=== PATIENT | male | born 1940 | race Caucasian/White ===

== ENCOUNTER 2016-06-04 10:22 | Day surgery (SDC) | payer OTHER, MEDICARE ==
[2016-06-04] MEDS ORDERED: NS 1,000 ML IV ONE (10:39)
[2016-06-04] MEDS ORDERED: ASPIRIN EC 325 MG TAB PO ONE ×2 (10:39→11:05)
[2016-06-04] MEDS ORDERED: FAMOTIDINE 20 MG TAB PO ONE (10:39)
[2016-06-04] MEDS ORDERED: diphenhydrAMINE 25 MG CAP PO ONE ×2 (10:39→11:05)
[2016-06-04] MEDS ORDERED: DIAZEPAM 5 MG TAB PO ONE (10:39)
[2016-06-04] MEDS ORDERED: DIAZEPAM 5 MG TAB ONE (11:05)
[2016-06-04] MEDS ORDERED: FAMOTIDINE 20 MG TAB ONE (11:05)
[2016-06-04 11:33] LABS: % IMMATURE GRANULYOCYTES 1.5 % (0.0-1.1); ABSOLUTE IMMATURE GRANULOCYTES 0.11 10^3/uL (0.00-0.10); ADD DIFF? NO; ADD MORPH? NO; ADD SCAN? NO; ATYPICAL LYMPHOCYTE FLAG 10 (0-99); FRAGMENT RBC FLAG 0 (0-99); HEMATOCRIT 40.3 % (40.0-51.0); HEMOGLOBIN 13.5 g/dL (13.7-17.5); LEFT SHIFT FLG 10 (0-99); LIPEMIA HEMOLYSIS FLAG 80 (0-99); MEAN CELL HEMOGLOBIN 30.3 pg (27.9-34.1); MEAN CELL HEMOGLOBIN CONCENTR. 33.5 g/dL (32.4-36.7); MEAN CELL VOLUME 90.4 fL (81.5-99.8); MEAN PLATELET VOLUME 10.5 fL (8.7-11.7); PLATELET CLUMPS FLAG 20 (0-99); PLATELET COUNT 254 10^3/uL (150-400); RED BLOOD CELL COUNT 4.46 10^6/uL (4.40-6.38); RED CELL DISTRIBUTION WIDTH 13.7 % (11.5-15.2)
[2016-06-04 11:43] LABS: INR 1.07 (0.83-1.16); PROTIME(PATIENT) 13.8 SEC (12.0-15.0)
[2016-06-04 11:56] LABS: ANION GAP 12 mEq/L (8-16); CALCIUM 9.8 mg/dL (8.5-10.4); CARBON DIOXIDE 22 mEq/l (22-31); CHLORIDE 109 mEq/L (97-110); CHOLESTEROL 197 mg/dL (140-220); CHOLESTEROL/HDL RATIO 4.28 RATIO (1.00-4.97); CREATININE 1.1 mg/dL (0.7-1.3); GLOMERULAR FILTRATION RATE > 60; GLUCOSE 96 mg/dL (70-100); HIGH DENSITY LIPOPROTEIN 46 mg/dL (40-65); LDL/HDL RATIO 2.67 RATIO (1.00-3.64); LOW DENSITY LIPOPROTEIN 123 mg/dL (80-100); NON-HIGH DENSITY LIPOPROTEIN 151 mg/dL (90-129); POTASSIUM 4.5 mEq/L (3.5-5.2); SODIUM 143 mEq/L (134-144); TRIGLYCERIDE 140 mg/dL (40-150); VERY LOW DENSITY LIPOPROTEINS 28 mg/dL (8-25)
[2016-06-04] MEDS ORDERED: LIDOCAINE 1% 30 ML SDV ONE (12:34)
[2016-06-04] MEDS ORDERED: fentaNYL 100 MCG/2 ML INJ ONE ×2 (12:34→13:22)
[2016-06-04] MEDS ORDERED: VERAPAMIL 5 MG/2 ML VIAL ONE (12:35)
[2016-06-04] MEDS ORDERED: HEPARIN 10,000 UNIT/10 ML MDV ONE (12:35)
[2016-06-04] MEDS ORDERED: IOPAMIDOL (ISOVUE 370) 100 ML BTL IV ONE (12:35)
[2016-06-04] MEDS ORDERED: ONDANSETRON 4 MG/2 ML VIAL ONE (13:39)
[2016-06-04] MEDS ORDERED: ADENOSINE 6 MG/2 ML VIAL ONE (13:41)
[2016-06-04] MEDS ORDERED: PROMETHAZINE HCL 25 MG/ML INJ IVP PRN (14:22)
--- NOTE | 2016-06-04 14:25 | PDDXCAT ---
Diagnostic Cath Note - . Date: 06/04/16 Occupational Therapist Rehab Manager: Herrera Indication: other (CAD with h/o prior PCIs; GARCIA as a possible CCS class III anginal equivalent) - Procedure Access: right wrist Procedure: left heart catheterization, coronary angiography, left ventriculogram , other (Fractional Flow Sherwood measurement of the LAD.) - Materials Left Heart Cath size: 5F Left Heart Cath materials: other (Sighseer and Pigtail) - Findings-Left Heart Catheterization LM: Normal. LAD: Mid-LAD approx. 50% located just distal to D-2 origin and proximal to prior stent; bifurcated D-2 with moderate disease in both branches. LCX: Normal. The circumflex is a small vessel with a single OM branch and a moderate to large atrial branch. RCA: Diffuse mild disease proximal and distal; PDA stent widel patent; posterolateral branch with 50% at origin. LVEF: 65% Wall motion: Normal. Estimated blood loss: <50ml Closure method: TR Band Assessment: 1) Normal LV systolic function. 2) CAD as described above. 3) Normal fractional flow reserve in the LAD. Intervention: Based on the patient's clinical history and diagnostic angiograms, it was decided to perform Fractional Flow Sherwood measurement to assess the significance of the moderate stenosis in the midportion of the anterior descending. The patient received 2500 units of intravenous heparin in addition to the 5000 units which had been given at the beginning of the procedure. A 5 Cameroonian Left-BU 3.5 guide catheter was advanced to the proximal aorta. The pressure-wire was advanced to the tip of the guide catheter. Guide catheter and pressure-wire readings were equalized. The left main was engaged and the pressure-wire was advanced beyond the stenosis in question. Two rounds of intracoronary adenosine at doses of 200 mcg and 300 mcg were administered. Fractional flow reserve was normal at 0.91. Patient Problems: Problems Problem Status Onset Coronary artery disease Acute Hypercholesteremia Acute Hypertension Acute
--- NOTE | 2016-06-04 14:34 | CPEKG ---
Heart Rate: 79 RR Interval: 759 P-R Interval: 208 QRSD Interval: 78 QT Interval: 396 QTC Interval: 455 P [place]: 46 QRS [place]: -5 T Wave [place]: 18 EKG Severity - ABNORMAL ECG - EKG Impression: SINUS RHYTHM EKG Impression: PROBABLE INFERIOR INFARCT, AGE INDETERMINATE Electronically Signed By: Dexter Baltazar 04-Jun-2016 15:47:56
== END 2016-06-04 17:59 | disposition home or self-care (01) ==
LOC: FCATH 10:22
PROVIDERS: ATTEND Internal Medicine Interventional Cardiology
PROC: B2111ZZ Fluoroscopy of Multiple Coronary Arteries using Low Osmolar Contrast (ICD-10-PCS; principal; 2016-06-04)
PROC: 4A0335C Measurement of Arterial Flow, Coronary, Percutaneous Approach (ICD-10-PCS; principal; 2016-06-04)
PROC: B2151ZZ Fluoroscopy of Left Heart using Low Osmolar Contrast (ICD-10-PCS; principal; 2016-06-04)
PROC: 4A023N7 Measurement of Cardiac Sampling and Pressure, Left Heart, Percutaneous Approach (ICD-10-PCS; principal; 2016-06-04)
DX: R06.02 Shortness of breath (principal); I25.10 Atherosclerotic heart disease of native coronary artery without angina pectoris; J84.9 Interstitial pulmonary disease, unspecified; I10 Essential (primary) hypertension; E78.5 Hyperlipidemia, unspecified
CPT/HCPCS: 93005; 93458; 93571; C1769; C1887; J0153; J1644; J2405; J3010; Q9967

== ENCOUNTER → 2016-08-28 | Outpatient (CLI) | payer OTHER, MEDICARE | LOC: BMCIMAGING 13:28 | PROVIDERS: ATTEND Internal Medicine | DX: E04.1 Nontoxic single thyroid nodule (principal); R06.9 Unspecified abnormalities of breathing; R53.83 Other fatigue | CPT/HCPCS: 76536-PO ==

== ENCOUNTER 2016-10-03 07:54 | Day surgery (SDC) | payer OTHER, MEDICARE ==
[2016-10-03] MEDS ORDERED: LIDOCAINE 1% 2 ML INJ ID PRN (08:00)
[2016-10-03] MEDS ORDERED: LR 1,000 ML IV ONE (08:00)
[2016-10-03] MEDS ORDERED: PROPOFOL/EMULSION 500 MG/50 ML BOTTLE IV ONE (08:41)
--- NOTE | 2016-10-03 08:43 | PDGENHP ---
History & Physical Chief Complaint: Fe def anemia, fatigue History of Present Illness: Fe def anemia Pertinent Past, Social, Family History: CAD. Hx of prostate ca x/p radiation. EGD last year with dilation of esophageal Schatzki's ring Relevant Physical Exam: NAD. RRR. CTAB. s/nt/nd/+bs
[2016-10-03] MEDS ORDERED: NALOXONE HCL 0.4 MG/ML INJ IVP PRN (08:47)
[2016-10-03] MEDS ORDERED: ONDANSETRON 4 MG/2 ML VIAL IVP PRN (08:47)
--- NOTE | 2016-10-03 08:49 | PDANEPAE ---
ANE History of Present Illness Patient presents for EGD ANE Past Medical History - Cardiovascular History Hx Hypertension: Yes Hx Arrhythmias: No Hx Chest Pain: No Hx Coronary Artery / Peripheral Vascular Disease: Yes Hx CHF / Valvular Disease: No Hx Palpitations: No - Pulmonary History Hx COPD: No Hx Asthma/Reactive Airway Disease: No Hx Recent Upper Respiratory Infection: No Hx Oxygen in Use at Home: No - Neurologic History Hx Cerebrovascular Accident: No Hx Seizures: No Hx Dementia: No - Endocrine History Hx Diabetes: No - Renal History Hx Renal Disorders: No - Liver History Hx Hepatic Disorders: No - Neurological & Psychiatric Hx Hx Neurological and Psychiatric Disorders: No - Cancer History Hx Cancer: Yes - Congenital Disorder History Hx Congenital Disorders: No - GI History Hx Gastrointestinal Disorders: Yes - Chronic Pain History Chronic Pain: Yes (BILATERAL KNEES) ANE Review of Systems - Exercise capacity METS (RN): 3 METS ANE Patient History - Allergies Allergies/Adverse Reactions: pseudoephedrine [Pseudoephedrine] Allergy (Severe, Verified 08/27/14 13:22) URINARY RETENTION Sulfa (Sulfonamide Antibiotics) Allergy (Severe, Verified 08/27/14 13:22) URINARY RETENTION clemastine fumarate [From Antihistamine] Allergy (Intermediate, Verified 13:22) URINE RETENTION menthol [From Antihistamine] Allergy (Intermediate, Verified 08/27/14 13:22) URINE RETENTION phenylpropanolamine HCl [From Antihistamine] Allergy (Intermediate, Verified 13:22) URINE RETENTION pseudoephedrine HCl [From Antihistamine] Allergy (Intermediate, Verified 13:22) URINE RETENTION tripelennamine HCl [From Antihistamine] Allergy (Intermediate, Verified 13:22) URINE RETENTION triprolidine HCl [From Antihistamine] Allergy (Intermediate, Verified 08/27/14 13:22) URINE RETENTION midazolam HCl [From Versed] Allergy (Verified 08/27/14 13:22) POLLEN Allergy (Unknown, Uncoded 08/27/14 13:22) UNK - Home Medications Home Medications: Aspirin [Aspirin 325 mg (*)] 325 mg PO DAILY 06/04/16 [Last Taken 09/25/16] Cholecalciferol Vit D3 [Vitamin D3 (*)] 2,000 units PO DAILY 06/04/16 [Last Taken 09/25/16] Esomeprazole Mag Trihydrate [Nexium] 40 mg PO DAILY 06/04/16 [Last Taken ] Gemfibrozil [Lopid 600 MG (*)] 600 mg PO BIDAC 06/04/16 [Last Taken 10/03/16] Glucosamine Sulfate [Glucosamine Sulfate 500 MG (*)] 1,000 mg PO DAILY@12 [Last Taken 09/25/16] Multivitamins [Multivitamin (*)] 1 each PO DAILY 06/04/16 [Last Taken 09/25/16] Tamsulosin HCl [Flomax 0.4 MG (*)] 0.4 mg PO HS 06/04/16 [Last Taken 10/02/16] Valsartan [Diovan (*)] 160 mg PO DAILY 06/04/16 [Last Taken 10/03/16] Co Q-10 200 mg 1 tab DAILY 09/20/16 [Last Taken 09/25/16] Finasteride 1 tab DAILY 09/20/16 [Last Taken 10/03/16] Norvasc 2.5 mg (*) 1 tab DAILY 09/20/16 [Last Taken 10/03/16] - NPO status NPO Since - Liquids (Date): 10/02/16 NPO Since - Liquids (Time): 05:00 NPO Since - Solids (Date): 10/01/16 NPO Since - Solids (Time): 08:00 - Smoking Hx Smoking Status: Never smoked ANE Labs/Vital Signs - Vital Signs Blood Pressure: 132/71 Heart Rate: 101 Respiratory Rate: 22 O2 Sat (%): 92 Height: 170.18 cm Weight: 90.718 kg ANE Physical Exam - Airway Neck exam: FROM Mallampati Score: Class 2 Mouth exam: poor dentition - Pulmonary Pulmonary: no respiratory distress - Cardiovascular Cardiovascular: regular rate and rhythym - ASA Status ASA Status: IV ANE Anesthesia Plan Anesthesia Plan: GA with mask (rba discussed, pt agrees to proceed)
--- NOTE | 2016-10-03 08:49 | POSTANESTH ---
Post Anesthetic Evaluation Cardiovascular Status: Normal, Stable Respiratory Status: Normal, Stable Level of Consciousness/Mental Status: Can Participate in Eval Pain Control: Adequate, Prn Tx Ordered Nausea/Vomiting Control: Adequate, Prn Tx Ordered Complications Possibly Related to Anesthesia: None Noted
[2016-10-03] MEDS ORDERED: PHENYLEPHRINE HCL 100 MCG/ML SYR ONE (08:50)
--- NOTE | 2016-10-03 10:13 | POSTOPPROG ---
Post Op Note Date of Operation: 10/03/16 Surgeon: José Antonio Roberson Pre-op Diagnosis: Fe def anemia Post-op Diagnosis: gastritis, sigmoid erythema Indication: Fe def anemia Procedure: EGD w biopsy, colonoscopy w biopsy Findings: minimal gastritis, mild sigmoid erythema Inf/Abcess present in the surg proc area at time of surgery?: No Complications: none Specimen(s): gastric antrum/body, duodenum 2nd portion/bulb, sigmoid
[2016-10-03 10:38] VITALS: TEMP 97.5
[2016-10-03 11:03] VITALS: O2SAT 93
[2016-10-03 11:17] VITALS: BP 135/87; PULSE 79; RESP 84
--- NOTE | 2016-10-03 14:59 | GPN ---
[f rep st] PROCEDURE NOTE DATE OF PROCEDURE: 10/03/2016 PROCEDURE: Esophagogastroduodenoscopy and colonoscopy. INDICATION: Iron-deficiency anemia, fatigue. CONSENT: Informed consent was obtained from the patient after a full explanation of risks, benefits , and alternatives to the procedure. COMPLICATIONS: None. MEDICATIONS GIVEN: Per Anesthesia. DESCRIPTION OF EXAM: After adequate sedation was achieved, the forward-viewing endoscope was advanc ed under direct vision through the mouth, esophagus, stomach, and as far as the second portion of th e duodenum. Findings are as noted below. Retroflexion was performed in the stomach. Following thi s portion of the procedure and withdrawal of the endoscope, the patient was repositioned for colonos copy. The forward-viewing colonoscope was advanced through the anal orifice, and as far as the cecu m and terminal ileum. The appendiceal orifice and terminal ileum were identified and photo document ed. Retroflexion was performed in the ascending colon and in the rectum. Findings are as below. FINDINGS: 1. Esophagus: Normal. 2. Stomach: Mild erythema was notable in the antrum and body. There were no erosions or ulcers. This was biopsied to assess for H pylori or other causes of gastritis. 3. Duodenum: Normal-appearing duodenum. Four biopsies were taken from the second portion of the d uodenum and 2 from the duodenal bulb to rule out celiac disease. 4. Terminal ileum: Normal. 5. There was some mild erythema and congestion in the distal sigmoid colon. This was biopsied to a ssess for significant mucosal pathology. 6. Colon prep was good and views were good. The mucosa overall was normal other than as mentioned above. No polyps were seen on a careful exam. 7. Small internal hemorrhoids were present and perianal/rectal exam was notable for reduced tone. IMPRESSION: No obvious source of iron-deficiency anemia was seen on esophagogastroduodenoscopy or c olonoscopy. Will await biopsy results as noted above. RECOMMENDATIONS: 1. Await biopsy results to assess for cause of iron-deficiency anemia. 2. Follow up with Dr. Emanuel. 3. If iron-deficiency anemia persists, please refer back for capsule endoscopy to assess the small bowel. /[id number]/MODL
== END 2016-10-03 11:40 | disposition home or self-care (01) ==
LOC: FSGY 07:54
PROVIDERS: ATTEND Internal Medicine
PROC: 0DBN8ZX Excision of Sigmoid Colon, Via Natural or Artificial Opening Endoscopic, Diagnostic (ICD-10-PCS; principal; 2016-10-03 09:00)
PROC: 0DB98ZX Excision of Duodenum, Via Natural or Artificial Opening Endoscopic, Diagnostic (ICD-10-PCS; principal; 2016-10-03 09:00)
PROC: 0DB68ZX Excision of Stomach, Via Natural or Artificial Opening Endoscopic, Diagnostic (ICD-10-PCS; principal; 2016-10-03 09:00)
DX: D50.9 Iron deficiency anemia, unspecified (principal); K29.70 Gastritis, unspecified, without bleeding; K64.8 Other hemorrhoids; Z85.46 Personal history of malignant neoplasm of prostate
CPT/HCPCS: J2370; J2704

== ENCOUNTER → 2016-11-07 | Outpatient (CLI) | payer OTHER, MEDICARE | LOC: BHFA 10:45 | PROVIDERS: ATTEND Internal Medicine Cardiovascular Disease | DX: R06.02 Shortness of breath (principal) ==

== ENCOUNTER → 2016-11-14 | Outpatient (CLI) | payer OTHER, MEDICARE | LOC: FIMAGING 10:39 | DX: J98.11 Atelectasis (principal); I25.10 Atherosclerotic heart disease of native coronary artery without angina pectoris; K80.20 Calculus of gallbladder without cholecystitis without obstruction ==

== ENCOUNTER → 2017-02-10 | Outpatient (CLI) | payer OTHER, MEDICARE | LOC: FIMAGING 12:00 | PROVIDERS: ATTEND Orthopaedic Surgery | DX: Z01.818 Encounter for other preprocedural examination (principal); M17.11 Unilateral primary osteoarthritis, right knee ==

== ENCOUNTER 2017-02-17 06:09 | Inpatient (IN) | payer OTHER, MEDICARE ==
[~2017-02-17 06:09] MED LIST: ROPIVACAINE 0.2% 80 MG, EPINEPHrine 0.2 MG, KETOROLAC TROMETHAMINE 30 MG, morphINE 10 M... IU ONE; TRANEXAMIC ACID 900 MG in NS 100 ML IV ONE
--- NOTE | 2017-02-17 06:12 | PDHPUP ---
History & Physical Update H&P update statement: This history and physical update is based on an assessment of the patient which was completed after admission or registration (within 24 hours), but prior to the surgery/procedure.
--- NOTE | 2017-02-17 06:14 | PDIAF ---
- Diagnosis Diagnosis: right knee djd Code Status: Full Code - Medication Management Discharge Medications: Medications to Continue on Transfer Aspirin [Aspirin 325 mg (*)] 325 mg PO DAILY 06/04/16 [Last Taken 09/25/16] Cholecalciferol Vit D3 [Vitamin D3 (*)] 2,000 units PO DAILY 06/04/16 [Last Taken 09/25/16] Esomeprazole Mag Trihydrate [Nexium] 20 mg PO BID 06/04/16 [Last Taken 10/03/16] Gemfibrozil [Lopid 600 MG (*)] 600 mg PO BIDAC 06/04/16 [Last Taken 10/03/16] Glucosamine Sulfate [Glucosamine Sulfate 500 MG (*)] 1,000 mg PO DAILY@12 [Last Taken 09/25/16] Multivitamins [Multivitamin (*)] 1 each PO DAILY 06/04/16 [Last Taken 09/25/16] Tamsulosin HCl [Flomax 0.4 MG (*)] 0.4 mg PO HS 06/04/16 [Last Taken 10/02/16] Valsartan [Diovan (*)] 160 mg PO DAILY 06/04/16 [Last Taken 10/03/16] Finasteride [Proscar 5 MG (*)] 5 mg PO DAILY #0 09/20/16 [Last Taken 10/03/16] Herbals/Supplements -Info Only 1 ea PO DAILY #0 09/20/16 [Last Taken 09/25/16] amLODIPine BESYLATE [Norvasc 2.5 mg (*)] 2.5 mg PO DAILY #0 09/20/16 [Last Taken 10/03/16] Erythromycin Gel [Erythromycin 2% Gel (*)] 1 dale TP BID PRN 01/29/17 [Last Taken Unknown] Discharge Medications: Refer to the Discharge Home Medication list for PRN reason. - Orders Services needed: Home Care, Physical Therapy Home Care Face to Face: I certify that this patient was under my care and that I had the required dazj-nz-unif encounter meeting the encounter requirements on the discharge day. My findings support the fact that the patient is homebound as defined in Home Care Face to Face Continued: CMS Chapter 7 Medicare Benefits Manual 30.1.1 , The condition of the patient is such that there exists a normal inability to leave home and consequently, leaving home would require a considerable and taxing effort. Diet Recommendation: no restrictions on diet Diet Texture: Regular Texture Diet Activity/Weight Bearing Restrictions: wbat. rom as tolerated. daily dressing changes. may shower without bandage. no soaking or immersion. ankle and calf rom while in bed. aspirin 325 mg po daily. f/u at two weeks. seek attn for increasing pain, cp, sob, other focal complaint - Follow Up Care Current Providers and Referrals: Nelli Emanuel MD [Primary Care Provider] -
[2017-02-17] MEDS ORDERED: ceFAZolin 2 GM/SWFI 2 GM/20 ML SYR IVP ONE ×2 (06:22→06:45)
[2017-02-17] MEDS ORDERED: LR 1,000 ML IV ONE (06:22)
[2017-02-17] MEDS ORDERED: LIDOCAINE 1% 2 ML INJ ID PRN (06:22)
[2017-02-17] MEDS ORDERED: FAMOTIDINE 20 MG TAB PO ONE (06:22)
[2017-02-17] MEDS ORDERED: ACETAMINOPHEN 325 MG TAB PO ONE (06:22)
[2017-02-17] MEDS ORDERED: THROMBIN (BOVINE) 5,000 UNIT VIAL TP ONE (06:47)
[2017-02-17] MEDS ORDERED: CALCIUM CHLORIDE 1 GM/10 ML INJ ONE (06:47)
[2017-02-17] MEDS ORDERED: ceFAZolin 1 GM/5 ML SYR ONE (06:48)
[2017-02-17] MEDS ORDERED: fentaNYL 100 MCG/2 ML INJ ONE (07:15)
[2017-02-17] MEDS ORDERED: PROPOFOL/EMULSION 500 MG/50 ML BOTTLE IV ONE (07:15)
[2017-02-17] MEDS ORDERED: LIDOCAINE 2% 5 ML SDV ONE ×2 (07:17)
--- NOTE | 2017-02-17 07:48 | PDANEPAE ---
ANE Past Medical History - Cardiovascular History Hx Hypertension: Yes Hx Arrhythmias: Yes Hx Chest Pain: Yes Hx Coronary Artery / Peripheral Vascular Disease: Yes Hx CHF / Valvular Disease: No Hx Palpitations: No - Pulmonary History Hx COPD: No Hx Asthma/Reactive Airway Disease: No Hx Recent Upper Respiratory Infection: No Hx Oxygen in Use at Home: No Hx Sleep Apnea: Yes Sleep Apnea Screening Result - Last Documented: Positive Pulmonary History Comment: Admits to SOB - Neurologic History Hx Cerebrovascular Accident: No Hx Seizures: No Hx Dementia: No - Endocrine History Hx Diabetes: No Hypothyroid: No Hyperthyroid: No Obesity: yes, mild - Renal History Hx Renal Disorders: No Renal History Comment: hx of fistula between bladder and rectum - Liver History Hx Hepatic Disorders: No - Neurological & Psychiatric Hx Hx Neurological and Psychiatric Disorders: No - Cancer History Hx Cancer: Yes Cancer History Comment: PROSTATE CANCER 2014 - Congenital Disorder History Hx Congenital Disorders: No - GI History Hx Gastrointestinal Disorders: Yes Gastrointestinal History Comment: GERD - Other Health History Other Health History: none - Chronic Pain History Chronic Pain: Yes (BILATERAL KNEES) - Surgical History Prior Surgeries: STENT PLACEMENT 2009, 2011 AND 2014. CATARACT SURGERY 10 YRS AGO. MASTOIDECTOMY AND TONSILLECTOMY 2 Y.O. ANE Review of Systems Review of Systems: - Exercise capacity Exercise capacity: limited by disability METS (RN): 4 METS ANE Patient History - Allergies Allergies/Adverse Reactions: pseudoephedrine [Pseudoephedrine] Allergy (Severe, Verified 08/27/14 13:22) URINARY RETENTION Sulfa (Sulfonamide Antibiotics) Allergy (Severe, Verified 08/27/14 13:22) URINARY RETENTION clemastine fumarate [From Antihistamine] Allergy (Intermediate, Verified 13:22) URINE RETENTION menthol [From Antihistamine] Allergy (Intermediate, Verified 08/27/14 13:22) URINE RETENTION midazolam HCl [From Versed] Allergy (Intermediate, Verified 02/03/17 11:19) phenylpropanolamine HCl [From Antihistamine] Allergy (Intermediate, Verified 13:22) URINE RETENTION pseudoephedrine HCl [From Antihistamine] Allergy (Intermediate, Verified 13:22) URINE RETENTION tripelennamine HCl [From Antihistamine] Allergy (Intermediate, Verified 13:22) URINE RETENTION triprolidine HCl [From Antihistamine] Allergy (Intermediate, Verified 08/27/14 13:22) URINE RETENTION Oohrbfy-Isx-Cgx Reductase Inhibitor Allergy (Unknown, Verified 02/03/17 11:20) POLLEN Allergy (Unknown, Uncoded 08/27/14 13:22) UNK - Home Medications Home Medications: Aspirin [Aspirin 325 mg (*)] 325 mg PO DAILY 06/04/16 [Last Taken 02/12/17] Cholecalciferol Vit D3 [Vitamin D3 (*)] 2,000 units PO DAILY 06/04/16 [Last Taken 02/11/17] Esomeprazole Mag Trihydrate [Nexium] 20 mg PO BID 06/04/16 [Last Taken 02/16/17 17:00] Gemfibrozil [Lopid 600 MG (*)] 600 mg PO BIDAC 06/04/16 [Last Taken 02/16/17 17: 00] Glucosamine Sulfate [Glucosamine Sulfate 500 MG (*)] 1,000 mg PO DAILY@12 [Last Taken 02/16/17] Multivitamins [Multivitamin (*)] 1 each PO DAILY 06/04/16 [Last Taken 02/12/17] Tamsulosin HCl [Flomax 0.4 MG (*)] 0.4 mg PO HS 06/04/16 [Last Taken 02/16/17 21 :00] Valsartan [Diovan (*)] 160 mg PO DAILY 06/04/16 [Last Taken 02/17/17 05:00] Finasteride [Proscar 5 MG (*)] 5 mg PO DAILY #0 09/20/16 [Last Taken 02/17/17 05 :00] Herbals/Supplements -Info Only 1 ea PO DAILY #0 09/20/16 [Last Taken 02/11/17] amLODIPine BESYLATE [Norvasc 2.5 mg (*)] 2.5 mg PO DAILY #0 09/20/16 [Last Taken 02/17/17 05:00] Erythromycin Gel [Erythromycin 2% Gel (*)] 1 dale TP BID PRN 01/29/17 [Last Taken 02/10/17] - NPO status NPO Since - Liquids (Date): 02/16/17 NPO Since - Liquids (Time): 18:00 NPO Since - Solids (Date): 02/16/17 NPO Since - Solids (Time): 18:00 - Anes Hx Anes Hx: no prior problems - Smoking Hx Smoking Status: Never smoked Marijuana use: No - Alcohol Use Alcohol Use: Rarely - Family Anes Hx Family Anes Hx: neg - N/A Family Hx Anesthesia Complications: none ANE Labs/Vital Signs - Vital Signs Blood Pressure: 151/84 Heart Rate: 86 Respiratory Rate: 16 O2 Sat (%): 94 Height: 165.1 cm Weight: 92.079 kg ANE Physical Exam - Airway Neck exam: FROM Mallampati Score: Class 3 Mouth exam: normal dental/mouth exam - Pulmonary Pulmonary: no respiratory distress, no rales or rhonchi, clear to auscultation - Cardiovascular Cardiovascular: regular rate and rhythym - ASA Status ASA Status: III (occasional pac/pvc. decreased air movement b/l lung bases) ANE Anesthesia Plan Anesthesia Plan: MAC, spinal Regional Anesthesia: adductor canal FNB Total IV Anesthesia: No
[2017-02-17] MEDS ORDERED: NALOXONE HCL 0.4 MG/ML INJ IVP PRN (07:51)
[2017-02-17] MEDS ORDERED: ACETAMINOPHEN 500 MG TAB PO PRN (07:51)
[2017-02-17] MEDS ORDERED: LABETALOL HCL 50 MG/10 ML SYR IVP PRN (07:51)
[2017-02-17] MEDS ORDERED: HYDROCODONE/APAP 5/325 TAB PO PRN (07:51)
[2017-02-17] MEDS ORDERED: ONDANSETRON 4 MG/2 ML VIAL IVP PRN ×2 (07:51→09:08)
[2017-02-17] MEDS ORDERED: OXYCODONE/APAP 5/325 TAB PO PRN (07:51)
[2017-02-17] MEDS ORDERED: LR 500 ML IV PRN (07:51)
[2017-02-17] MEDS ORDERED: RANITIDINE 50 MG/2 ML VIAL ONE (07:58)
[2017-02-17] MEDS ORDERED: MAGNESIUM HYDROXIDE 30 ML UDCUP PO PRN (09:08)
[2017-02-17] MEDS ORDERED: DIPHENOXYLATE/ATROPINE LOMOTIL 1 TAB PO PRN (09:08)
[2017-02-17] MEDS ORDERED: PROMETHAZINE HCL 25 MG/ML INJ IVP PRN (09:08)
[2017-02-17] MEDS ORDERED: LACTULOSE 20 GM/30 ML UDCUP PO PRN (09:08)
[2017-02-17] MEDS ORDERED: METOCLOPRAMIDE 10 MG/2 ML VIAL IVP PRN (09:08)
[2017-02-17] MEDS ORDERED: POLYETHYLENE GLYCOL 3350 17 GM PKT PO PRN (09:08)
[2017-02-17] MEDS ORDERED: BISACODYL 10 MG SUPP PR PRN (09:08)
[2017-02-17] MEDS ORDERED: TEMAZEPAM 15 MG CAP PO PRN (09:08)
[2017-02-17] MEDS ORDERED: oxyCODONE IR 5 MG TAB PO PRN (09:08)
[2017-02-17] MEDS ORDERED: diphenhydrAMINE 25 MG CAP PO PRN (09:08)
[2017-02-17] MEDS ORDERED: PROMETHAZINE HCL 25 MG SUPPR PR PRN (09:08)
[2017-02-17] MEDS ORDERED: ONDANSETRON DISINTEGRATING 4 MG TAB PO PRN (09:08)
[2017-02-17] MEDS ORDERED: DIAZEPAM 5 MG TAB PO PRN (09:08)
[2017-02-17] MEDS ORDERED: ROPIVACAINE HCL 150 MG/30 ML INJ ONE (09:15)
[2017-02-17] MEDS ORDERED: LR 1,000 ML IV SCH (09:30)
[2017-02-17] MEDS: ACETAMINOPHEN 325 MG TAB PO SCH ×3 (11:23→23:16)
[2017-02-17] MEDS: ceFAZolin 2 GM/DEXTROSE 100 ML IV SCH ×2 (14:25→20:21)
[2017-02-17] MEDS: TRANEXAMIC ACID 650 MG TAB PO SCH ×2 (14:25→23:16)
--- NOTE | 2017-02-17 17:14 | ASMTCMCOM ---
CM Note CM Note Notes: Pt accepted at [facility] per Sylvain, referral sent. Date Signed: 02/17/2017 05:14 PM Electronically Signed By:SANDRA Dangelo
--- NOTE | 2017-02-17 17:14 | ASMTCMCOM ---
CM Note CM Note Notes: Pt accepted at [facility] per Sylvain, referral sent. Date Signed: 02/17/2017 05:14 PM Electronically Signed By:SANDRA Dangelo
--- NOTE | 2017-02-17 17:14 | ASMTCMCOM ---
CM Note CM Note Notes: Pt accepted at [facility] per Sylvain, referral sent. Date Signed: 02/17/2017 05:14 PM Electronically Signed By:SANDRA Dangelo
[2017-02-17] MEDS: GEMFIBROZIL 600 MG TAB PO SCH (17:42)
[2017-02-17] MEDS: PANTOPRAZOLE SODIUM 40 MG TAB PO SCH (20:21)
[2017-02-17] MEDS: FAMOTIDINE 20 MG TAB PO SCH (20:21)
[2017-02-17] MEDS: SENNOSIDES/DOCUSATE SODIUM TAB PO SCH (20:21)
[2017-02-17] MEDS ORDERED: TAMSULOSIN HCL 0.4 MG CAP PO SCH (21:00)
[2017-02-17] MEDS ORDERED: ESOMEPRAZOLE MAG TRIHYDRATE 20 MG PO SCH (21:00)
[2017-02-17 22:09] VITALS: RESP 16
[2017-02-17] MEDS: ASPIRIN 325 MG TAB PO SCH (23:16)
[2017-02-18] MEDS: ACETAMINOPHEN 325 MG TAB PO SCH ×2 (05:25→11:49)
[2017-02-18] MEDS: TRANEXAMIC ACID 650 MG TAB PO SCH (06:31)
[2017-02-18 07:28] VITALS: PULSE 89
--- NOTE | 2017-02-18 08:02 | PDIAF ---
- Diagnosis Diagnosis: right knee djd Code Status: Full Code - Medication Management Discharge Medications: Medications to Continue on Transfer Aspirin [Aspirin 325 mg (*)] 325 mg PO DAILY 06/04/16 [Last Taken 02/12/17] Cholecalciferol Vit D3 [Vitamin D3 (*)] 2,000 units PO DAILY 06/04/16 [Last Taken 02/11/17] Esomeprazole Mag Trihydrate [Nexium] 20 mg PO BIDAC 06/04/16 [Last Taken 17:00] Gemfibrozil [Lopid 600 MG (*)] 600 mg PO BIDAC 06/04/16 [Last Taken 02/16/17 17: 00] Glucosamine Sulfate [Glucosamine Sulfate 500 MG (*)] 1,000 mg PO DAILY@12 [Last Taken 02/16/17] Multivitamins [Multivitamin (*)] 1 each PO DAILY 06/04/16 [Last Taken 02/12/17] Tamsulosin HCl [Flomax 0.4 MG (*)] 0.4 mg PO HS 06/04/16 [Last Taken 02/16/17 21 :00] Valsartan [Diovan (*)] 160 mg PO DAILY 06/04/16 [Last Taken 02/17/17 05:00] Finasteride [Proscar 5 MG (*)] 5 mg PO DAILY #0 09/20/16 [Last Taken 02/17/17 05 :00] Herbals/Supplements -Info Only 1 ea PO DAILY #0 09/20/16 [Last Taken 02/11/17] amLODIPine BESYLATE [Norvasc 2.5 mg (*)] 2.5 mg PO DAILY #0 09/20/16 [Last Taken 02/17/17 05:00] Erythromycin Gel [Erythromycin 2% Gel (*)] 1 dale TP BID PRN 01/29/17 [Last Taken 02/10/17] Amoxicillin Trihydrate [Amoxil] 500 mg PO TID@06,14,02/17/17 [Last Taken 09/28 06:00] Aspirin [Aspirin 325 mg (*)] 325 mg PO DAILY tab 02/18/17 [Last Taken Unknown] oxyCODONE IR [Oxycodone Ir (*)] 5 - 10 mg PO Q3HRS PRN #90 tab 02/18/17 [Last Taken Unknown] Discharge Medications: Refer to the Discharge Home Medication list for PRN reason. - Orders Services needed: Physical Therapy Diet Recommendation: no restrictions on diet Diet Texture: Regular Texture Diet Activity/Weight Bearing Restrictions: wbat. rom as tolerated. daily dressing changes. may shower without bandage. no soaking or immersion. ankle and calf rom while in bed. aspirin 325 mg po daily. f/u at two weeks. seek attn for increasing pain, cp, sob, other focal complaint - Follow Up Care Current Providers and Referrals: Nelli Emanuel MD [Primary Care Provider] -
[2017-02-18] MEDS: ASPIRIN 325 MG TAB PO SCH (08:10)
[2017-02-18] MEDS: GEMFIBROZIL 600 MG TAB PO SCH (08:10)
[2017-02-18] MEDS: PANTOPRAZOLE SODIUM 40 MG TAB PO SCH (08:10)
[2017-02-18] MEDS: SENNOSIDES/DOCUSATE SODIUM TAB PO SCH (08:10)
[2017-02-18] MEDS: FAMOTIDINE 20 MG TAB PO SCH (08:15)
--- NOTE | 2017-02-18 08:23 | GDS ---
[f rep st] DISCHARGE SUMMARY ADMIT DIAGNOSIS: Right knee degenerative joint disease. DISCHARGE DIAGNOSIS: Right knee degenerative joint disease. PROCEDURE: Right total knee arthroplasty. HISTORY OF PRESENT ILLNESS: The patient is a 76-year-old gentleman with end-stage arthritis to his r ight knee. Clinical and radiographic features are consistent with this. He has failed all attempts at conservative management, has interference with his activities of daily living. I, therefore, liliya mmended total knee replacement. HOSPITAL COURSE: The patient was admitted the hospital floor after uncomplicated total knee arthropl asty. He tolerated the procedure well. Postoperative course was uneventful. At the time of dischar ge, he was tolerating an oral diet. His pain is well controlled on oral medicines. He is voiding wi thout difficulty. His dressing is clean, dry, and intact. He has negative calf swelling or tenderne ss. Negative Homans sign bilaterally. X-rays are stable with anatomic alignment. DISCHARGE ACTIVITIES: Weightbearing as tolerated. Range of motion as tolerated. Daily dressing delicia nges. No soaking or immersion. May shower without the bandage. FOLLOWUP: Follow up in the orthopedic clinic in 2 weeks. Seek attention for increasing redness, swe lling, drainage. DISCHARGE MEDICATIONS: Oxycodone 5 mg 1-2 every 4 hours p.r.n. pain, aspirin 325 mg p.o. daily. Follow up at 2 weeks. He will be discharged to [facility]. /[id number]/MODL
[2017-02-18] MEDS ORDERED: FINASTERIDE 5 MG TAB PO SCH (09:00)
[2017-02-18] MEDS ORDERED: VALSARTAN 160 MG TAB PO SCH (09:00)
[2017-02-18 11:24] VITALS: BP 160/90; TEMP 99.6; O2SAT 95
--- NOTE | 2017-02-18 14:17 | ASMTCMCOM ---
CM Note CM Note Notes: Pt medically stable for d/c to [facility], requests wc van so transport set up w [employer] for 1200; pt aware he will be billed. RN to call report to Sylvain at . Orders sent in [employer]. Sylvain to complete PASRR. Date Signed: 02/18/2017 02:16 PM Electronically Signed By:SANDRA Dangelo
--- NOTE | 2017-02-18 14:18 | ASDISCHSUM ---
Discharge Information Plan Status:SNF Medically Cleared to Leave: Discharge Date:02/18/2017 12:00 PM CM D/C Disposition:Correction Facility ADT D/C Disposition:Correction Facility Projected Discharge Date:02/18/2017 11:00 AM Transportation at D/C:Wheelchair Van Discharge Delay Reason: Follow-Up Date:02/18/2017 11:00 AM Discharge Slot: Final Diagnosis: Placement Information Referral Type:*Longterm/SNF Referral ID:[id number] Provider Name:[facility] Address 1:[address] Address 2: City:[place] Selection Factors: State:[place] Patient Contact Information Contact Name:LULI Relationship: Address:[address] City:[place] Alternate Phone: State/Zip Code:[place] [address] Email: Financial Information Financial Class: Primary Plan Desc:MEDICARE INPATIENT Primary Plan Number:[id number] Secondary Plan Desc:[employer]/MDR SUPPLEMENT Secondary Plan Number:[id number] Assessment Information [facility] CM Progress Note CM Note CM Note Notes: Pt accepted at [facility] per Sylvain, referral sent. Date Signed: 02/17/2017 05:14 PM Electronically Signed By:SANDRA Dangelo [facility] CM Progress Note CM Note CM Note Notes: Pt medically stable for d/c to [facility], requests van so transport set up w [employer] for 1200; pt aware he will be billed. RN to call report to Sylvain at . Orders sent in [employer]. Sylvain to complete PASRR. Date Signed: 02/18/2017 02:16 PM Electronically Signed By:SANDRA Dangelo Intervention Information
--- NOTE | 2017-02-18 14:18 | ASDISCHSUM ---
Discharge Information Plan Status:SNF Medically Cleared to Leave: Discharge Date:02/18/2017 12:00 PM CM D/C Disposition:[facility]ison Facility ADT D/C Disposition:Prison Facility Projected Discharge Date:02/18/2017 11:00 AM Transportation at D/C:Wheelchair Van Discharge Delay Reason: Follow-Up Date:02/18/2017 11:00 AM Discharge Slot: Final Diagnosis: Placement Information Referral Type:*[facility]cfp/SNF Referral ID:[id number] Provider Name:Christos Hernandez [facility] Address 1:[address] Address 2: City:[place] Selection Factors: State:[place] Patient Contact Information Contact Name:LULI Relationship: Address:[address] City:[place] Alternate Phone: State/Zip Code:[place] [address] Email: Financial Information Financial Class: Primary Plan Desc:MEDICARE INPATIENT Primary Plan Number:[id number] Secondary Plan Desc:AARP/MDR SUPPLEMENT Secondary Plan Number:[id number] Assessment Information [facility] CM Progress Note CM Note CM Note Notes: Pt accepted at [facility] per Sylvain, referral sent. Date Signed: 02/17/2017 05:14 PM Electronically Signed By:SANDRA Dangelo [facility] CM Progress Note CM Note CM Note Notes: Pt medically stable for d/c to [facility], requests van so transport set up w [employer] for 1200; pt aware he will be billed. RN to call report to Sylvain at . Orders sent in [employer]. Sylvain to complete PASRR. Date Signed: 02/18/2017 02:16 PM Electronically Signed By:SANDRA Dangelo Intervention Information
--- NOTE | 2017-02-18 14:18 | ASDISCHSUM ---
Discharge Information Plan Status:SNF Medically Cleared to Leave: Discharge Date:02/18/2017 12:00 PM CM D/C Disposition:[facility] ADT D/C Disposition:[facility] Facility Projected Discharge Date:02/18/2017 11:00 AM Transportation at D/C:Wheelchair Van Discharge Delay Reason: Follow-Up Date:02/18/2017 11:00 AM Discharge Slot: Final Diagnosis: Placement Information Referral Type:*[facility]pc/SNF Referral ID:[id number] Provider Name:Christos Hernandez [facility] Address 1:[address] Address 2: City:[place] Selection Factors: State:[place] Patient Contact Information Contact Name:LULI Relationship: Address:[address] City:[place] Alternate Phone: State/Zip Code:[place] [address] Email: Financial Information Financial Class: Primary Plan Desc:MEDICARE INPATIENT Primary Plan Number:[id number] Secondary Plan Desc:AARP/MDR SUPPLEMENT Secondary Plan Number:[id number] Assessment Information [facility] CM Progress Note CM Note CM Note Notes: Pt accepted at [facility] per Sylvain, referral sent. Date Signed: 02/17/2017 05:14 PM Electronically Signed By:SANDRA Dangelo [facility] CM Progress Note CM Note CM Note Notes: Pt medically stable for d/c to [facility], requests van so transport set up w [employer] for 1200; pt aware he will be billed. RN to call report to Sylvain at . Orders sent in [employer]. Sylvain to complete PASRR. Date Signed: 02/18/2017 02:16 PM Electronically Signed By:SANDRA Dangelo Intervention Information
--- NOTE | 2017-02-22 08:26 | GOP ---
[f rep st] OPERATIVE REPORT DATE OF OPERATION: 02/17/2017 SURGEON: Javy Candelaria MD GEAR LAPPING MACHINE OPERATOR: Ryland Wolfe, REFINED SYRUP OPERATOR, [facility], who was a medical necessity for the entirety of the case. PREOPERATIVE DIAGNOSIS: Right knee degenerative joint disease. POSTOPERATIVE DIAGNOSIS: Right knee degenerative joint disease. PROCEDURE PERFORMED: Right total knee arthroplasty, MAKOplasty. FINDINGS: SPECIMENS: To pathology, the bony cuts. DESCRIPTION OF PROCEDURE: The patient was identified in the preanesthesia area. The right knee glenroy rly demarcated as the operative site with indelible marker. He was given 2 g of Ancef intravenously en route to the operative suite. In the OR, general endotracheal anesthesia was administered after a spinal anesthetic was placed. He was positioned in the supine position. The right lower extremity sterilely prepped and draped in the usual fashion. A tourniquet was applied to the upper thigh. Shemar ropriate time-out procedure was carried out. The limb was exsanguinated with an Esmarch bandage. To urniquet inflated to 275 mmHg. Standard anterior midline incision was made. Thick subcutaneous flap s were elevated followed by medial parapatellar arthrotomy. The knee demonstrated tricompartmental a rthritis. The decision was made to proceed with total knee replacement. Separate percutaneous incis ions were made in the mid femur and mid lion, and 2 guide pins and the femoral and tibial reference a rrays for the MAKOplasty protocol affixed in standard fashion. Attention was then returned to the kn ee. The fat pad was debrided. Subperiosteal elevation was carried out to the mid coronal plane. Th e knee was brought to a flexed position with retractors placed. Femoral and tibial checkpoints were placed. The bony landmarks were then entered into the computer in standard fashion. Soft tissue rel ease was carried out over the medial aspect to facilitate straightening of the limb, and slight adjus tment of the components using the MAKOplasty robot was carried out. Using the robot assistance, the femoral and tibial cuts were then made and the bony fragments withdrawn. A box cut for the size 5 fe mur was then pinned and made with an oscillating saw. Trial reduction with a size 5 femur revealed a ppropriate position. The size 5 tibial base plate was then pinned in the correct position. A trial reduction was carried out with a 9 mm spacer. This allowed full extension and flexion of the knee wi th stability with varus-valgus stress throughout the flexion-extension arc. The patella was then tristan rted, cut in a freehand cutting technique. The bony wedge withdrawn. Drill holes made for a 38 mm p olyethylene patella. All trial components were withdrawn. The surfaces were thoroughly cleansed and dried with pulsatile lavage solution. In a sequential fashion, the tibial, femoral and patellar com ponents were then cemented. A final implant was then placed and confirmed to be fully seated. The m argins were instilled with a joint cocktail of ropivacaine, morphine, Toradol, and epinephrine. The medial parapatellar arthrotomy closed using #1 Ethibond suture. The knee instilled with a platelet-r ich plasma solution. The subcutaneous tissue closed using 2-0 Monocryl and a 0 Quill equivalent. Th e incision was stapled. The sterile dressing was applied. The patient was awakened, extubated, and taken to the recovery room in good, stable condition. OPERATIVE INDICATIONS: The patient is a 76-year-old gentleman with end-stage arthritis to his right knee. Clinical and radiographic features are consistent with this. He has failed all attempts at co nservative management. I have, therefore, recommended total knee replacement. He understood the ris ks, benefits, alternatives, and wished to proceed. Written consent was signed and placed in the maría ent's chart. TOTAL TOURNIQUET TIME: 70 minutes. COMPLICATIONS: None. IMPLANTS: The [place] Triathlon knee size 5 PS femoral component, Triathlon X3 asymmetric patella, a 38 size 11 X3 tibial bearing insert size 5 x 9 mm, and a 5 tibial base plate was placed. DISPOSITION: To the recovery room then the floor. He is weightbearing, range of motion as tolerated . /[id number]/MODL
== END 2017-02-18 12:00 | DRG 470 ==
LOC: F3N 06:09
PROVIDERS: ADMIT Orthopaedic Surgery; ATTEND Orthopaedic Surgery
PROC: 8E0YXCZ Robotic Assisted Procedure of Lower Extremity (ICD-10-PCS; principal; 2017-02-17 07:15)
PROC: 0SRC0J9 Replacement of Right Knee Joint with Synthetic Substitute, Cemented, Open Approach (ICD-10-PCS; principal; 2017-02-17 07:15)
DX: M17.11 Unilateral primary osteoarthritis, right knee (principal); I10 Essential (primary) hypertension; N40.1 Benign prostatic hyperplasia with lower urinary tract symptoms; N13.9 Obstructive and reflux uropathy, unspecified; G47.30 Sleep apnea, unspecified; I25.10 Atherosclerotic heart disease of native coronary artery without angina pectoris; Z95.5 Presence of coronary angioplasty implant and graft
CPT/HCPCS: 97116-GP; 97161-GP; 97165-GO; C1713; G8978-GP-CK; G8979-GP-CI; G8987-GO-CI; G8988-GO-CI; G8989-GO-CI; J0171; J0690; J1885; J2704; J2780; J2795; J3010

== ENCOUNTER → 2017-03-26 | Outpatient (CLI) | payer OTHER, MEDICARE | LOC: FIMAGING 16:59 | PROVIDERS: ATTEND Internal Medicine | DX: I80.01 Phlebitis and thrombophlebitis of superficial vessels of right lower extremity (principal) ==

== ENCOUNTER → 2017-04-02 | Outpatient (CLI) | payer OTHER, MEDICARE | LOC: BMCIMAGING 10:20 | PROVIDERS: ATTEND Orthopaedic Surgery | DX: Z47.1 Aftercare following joint replacement surgery (principal); Z96.651 Presence of right artificial knee joint ==

== ENCOUNTER → 2017-05-14 | Outpatient (CLI) | payer OTHER, MEDICARE | LOC: BMCIMAGING 14:01 | PROVIDERS: ATTEND Physician Assistant | DX: Z96.651 Presence of right artificial knee joint (principal); R93.6 Abnormal findings on diagnostic imaging of limbs ==

== ENCOUNTER → 2017-07-14 | Outpatient (CLI) | payer OTHER, MEDICARE | LOC: BMCIMAGING 09:27 | PROVIDERS: ATTEND Physician Assistant | DX: Z47.1 Aftercare following joint replacement surgery (principal); Z96.651 Presence of right artificial knee joint ==

== ENCOUNTER → 2017-08-27 | Outpatient (CLI) | payer OTHER, MEDICARE | LOC: BMCIMAGING 10:43 | PROVIDERS: ATTEND Orthopaedic Surgery | DX: Z47.1 Aftercare following joint replacement surgery (principal); Z96.651 Presence of right artificial knee joint ==

== ENCOUNTER → 2018-02-12 | Outpatient (CLI) | payer OTHER, MEDICARE | LOC: BHFA 09:15 | PROVIDERS: ATTEND Internal Medicine Interventional Cardiology | DX: I25.10 Atherosclerotic heart disease of native coronary artery without angina pectoris (principal); I10 Essential (primary) hypertension; E78.5 Hyperlipidemia, unspecified ==

== ENCOUNTER → 2018-03-23 | Outpatient (CLI) | payer OTHER, MEDICARE | LOC: BMCIMAGING 09:00 | PROVIDERS: ATTEND Orthopaedic Surgery | DX: Z47.1 Aftercare following joint replacement surgery (principal); Z96.651 Presence of right artificial knee joint ==

== ENCOUNTER 2018-06-15 06:25 | Day surgery (SDC) | payer OTHER, MEDICARE ==
[2018-06-15] MEDS ORDERED: DIAZEPAM 5 MG TAB PO ONE (06:30)
[2018-06-15] MEDS ORDERED: NS 1,000 ML IV ONE (06:30)
[2018-06-15] MEDS ORDERED: FAMOTIDINE 20 MG TAB PO ONE (06:30)
[2018-06-15] MEDS ORDERED: ASPIRIN EC 325 MG TAB PO ONE (06:30)
[2018-06-15] MEDS ORDERED: diphenhydrAMINE 25 MG CAP PO ONE ×2 (06:30→06:58)
[2018-06-15] MEDS ORDERED: FAMOTIDINE 20 MG TAB ONE (06:58)
[2018-06-15] MEDS ORDERED: DIAZEPAM 5 MG TAB ONE (06:59)
[2018-06-15 07:11] LABS: PLATELET COUNT 248 10^3/uL (150-400)
[2018-06-15 07:24] LABS: INR 1.06 (0.83-1.16); PROTIME(PATIENT) 13.4 SEC (12.0-15.0)
[2018-06-15] MEDS ORDERED: LIDOCAINE 1% 300 MG/30 ML SDV ONE (07:48)
[2018-06-15] MEDS ORDERED: HEPARIN 10,000 UNIT/10 ML MDV (1,000 UNIT/ML) ONE (07:48)
[2018-06-15] MEDS ORDERED: fentaNYL 100 MCG/2 ML INJ ONE (07:48)
[2018-06-15] MEDS ORDERED: IOPAMIDOL (ISOVUE-370) 150 ML BTL IV ONE (07:48)
[2018-06-15] MEDS ORDERED: VERAPAMIL 5 MG/2 ML VIAL ONE (07:48)
[2018-06-15] MEDS ORDERED: LORazepam 2 MG/ML INJ ONE (08:58)
--- NOTE | 2018-06-15 08:59 | PDPROPOC ---
Sedation Plan of Care Sedation Plan of Care: vital signs stable, mental status noted, patient educated of risks, benefits, alternatives, patient can tolerate sedation ASA Classification: ASA 2 Planned drugs: other (ativan) Mallampati Score: Class 2 Mallampati Reference Image: Patient passed 3-3-2 rule?: Yes
--- NOTE | 2018-06-15 08:59 | PDHPUP ---
History & Physical Update H&P update statement: This history and physical update is based on an assessment of the patient which was completed after admission or registration (within 24 hours), but prior to the surgery/procedure. H&P update: H&P reviewed & patient examined, no change in patient's condition since H&P completed
--- NOTE | 2018-06-15 09:35 | PDDXCAT ---
Diagnostic Cath Note - . Date: 06/15/18 Induction Heating Equipment Setter: Eduard Indication: CCC Class III and IV angina on medical treatment - Procedure Access: right wrist Procedure: left heart catheterization, coronary angiography, left ventriculogram - Materials Left Heart Cath size: 6F Left Heart Cath materials: pigtail, other ([place] 4) - Findings-Left Heart Catheterization LM: unobstructed LAD: Stent patent LCX: unobstructed RCA: stent unobstructed. EDP: 15 mmhg LVEF: 60 Wall motion: normal Complications: none Estimated blood loss: <50ml Closure method: TR Band Assessment: Patent RCA and LAD stents Plan: medical therapy. Patient Problems: Problems Problem Status Onset chronic disease mgmt/transitional care Acute Coronary artery disease Acute Hypertension Acute Hypercholesteremia Acute
--- NOTE | 2018-06-17 12:12 | CPEKG ---
Test Reason : OPEN Blood Pressure : / mmHG Vent. Rate : 100 BPM Atrial Rate : 040 BPM P-R Int : 190 ms QRS Dur : 131 ms QT Int : 385 ms P-R-T Axes : 063 047 007 degrees QTc Int : 497 ms Sinus rhythm Ventricular bigeminy Right bundle branch block Confirmed by Shamar Reaves ([id number]) on 06/17/2018 12:11:31 PM Referred By: ANTONIO PRITCHARD Confirmed By:Shamar Reaves
== END 2018-06-15 13:25 | disposition home or self-care (01) ==
LOC: FCATH 06:25
PROVIDERS: ATTEND Internal Medicine Interventional Cardiology
DX: I25.119 Atherosclerotic heart disease of native coronary artery with unspecified angina pectoris (principal); Z95.5 Presence of coronary angioplasty implant and graft; E78.5 Hyperlipidemia, unspecified; I10 Essential (primary) hypertension; R06.02 Shortness of breath; J84.9 Interstitial pulmonary disease, unspecified; Z85.46 Personal history of malignant neoplasm of prostate
CPT/HCPCS: 93005; 93458; C1769; J1644; J2060; J3010; Q9967